=== PATIENT | male | born 1960 | race Caucasian/White ===

== ENCOUNTER 2017-01-11 13:04 | Emergency (ER) | payer SELFPAY ==
[~2017-01-11] VITALS: Ht 170.2 cm; Wt 69.1 kg
[2017-01-11 13:10] VITALS: TEMP 36.8; Ht 170.2 cm; Wt 69.1 kg
[2017-01-11] MEDS ORDERED: XYLOCAINE 1%/SOD BICARB 20 ML VIAL INFIL ONE (13:30)
[2017-01-11] MEDS ORDERED: DIPHTHERIA/TETANUS/PERTUSSIS 0.5 ML SYR/VIAL IM. ONE (13:30)
[2017-01-11] MEDS ORDERED: CEPHALEXIN MONOHYDRATE 250 MG CAP PO ONE (14:00)
--- NOTE | 2017-01-11 14:08 | DIAGNOSTIC IMAGING REPORT ---
RIGHT INDEX FINGER 3 VIEWS HISTORY: Right index finger injury. COMPARISON: None. FINDINGS: Comminuted and displaced fracture within the distal tuft of the right index finger. Soft tissue laceration and soft tissue swelling distally. No dislocation. No radiopaque foreign bodies. IMPRESSION: Comminuted and displaced fracture within the distal tuft of the right index finger. Electronically signed by: Lawson Rapp M.D. 01/11/2017 2:07 PM Dictated Date/Time: 01/11/2017 2:06 PM
[2017-01-11] MEDS ORDERED: CEPH500C PO (14:17)
[2017-01-11] MEDS ORDERED: OXYC1TAB3 PO (14:17)
--- NOTE | 2017-01-11 15:03 | EMERGENCY ROOM VISIT NOTE ---
History First contact with patient: 13:25 Chief Complaint: LACERATION/CUT (SUT/DERMABOND) Stated Complaint: POINTER FINGER, RIGHT HAND -LACERATION Nursing Triage Summary: triage note: pt reports " i was cutting a piece of aluminium at 1100 today and the aluminum cut my right index finger.' dressing to right second finger intact - wound not visulaized in triage bloody drainage noted on dressing. pt reports "it is almost cut off." History of Present Illness The patient is a 56 year old male who presents to the Emergency Room with complaints of a right index finger laceration. The patient reports that he was cutting aluminum with a saw around 11 AM this morning when the aluminum kicked back and cut his finger. The patient reports significant bleeding. He rates his discomfort a 5 out of 10. The patient is not certain if his tetanus shot is up-to-date within 10 years. The patient is ambidextrous. Review of Systems 10 system review was performed and was negative except for pertinent positives and negatives as indicated in history of present illness Past Medical/Surgical History Medical Problems: (1) Corneal Foreign Body (2) Tobacco Use Disorder Surgical Problems: (1) No history of previous surgery Family History FH: heart disease Social History Smoking Status: Current Some Day Smoker Alcohol Use: occasionally Marital Status: Occupation Status: employed Current/Historical Medications Scheduled Cephalexin Monohydrate (Keflex), 500 MG PO TID Scheduled PRN Oxycodone Ir (Roxicodone Ir), 1-2 TAB PO Q4H PRN for Pain Allergies Coded Allergies: No Known Allergies (Unverified , 01/11/17) Physical Exam Vital Signs Date Time Temp Pulse Resp B/P (MAP) Pulse Ox O2 Delivery O2 Flow Rate FiO2 01/11/17 13:10 36.8 90 18 147/81 95 Room Air Physical Exam CONSTITUTIONAL: Healthy and well nourished. Alert and oriented X 3 with positive affect. Patient appears in mild discomfort from pain. HEENT: Normocephalic, atraumatic. Pupils equal, round and reactive. NECK: Full active range of motion without discomfort. MUSCULOSKELETAL: Examination of the right index finger pad shows a macerated laceration without active bleeding estimated total laceration length of needed repair is 3 cm. Nail plate is intact. The patient has no tenderness to palpation of the DIP joint. Capillary refill is less than 2 seconds. INTEGUMENTARY: No rash or other significant dermatologic conditions noted. NEUROLOGIC: No focal neurologic deficits noted. Right index fingertip is sensory intact. Medical Decision & Procedures ER Provider Diagnostic Interpretation: My interpretation of a right index finger x-rays shows a comminuted distal phalanx fracture. Radiologist report is as follows: RIGHT INDEX FINGER 3 VIEWS HISTORY: Right index finger injury. COMPARISON: None. FINDINGS: Comminuted and displaced fracture within the distal tuft of the right index finger. Soft tissue laceration and soft tissue swelling distally. No dislocation. No radiopaque foreign bodies. IMPRESSION: Comminuted and displaced fracture within the distal tuft of the right index finger. Medications Administered Medications (Trade) Dose Ordered Sig/Rashid Route Start Time Stop Time Status Last Admin Dose Admin Diphtheria/ Pertussis/Tetanus Vacc (Adacel Inj) 0.5 ml ONCE ONCE IM. 01/11/17 13:30 01/11/17 13:31 DC 01/11/17 13:53 0.5 ML Cephalexin Monohydrate (Keflex Cap) 500 mg NOW ONCE PO 01/11/17 14:00 01/11/17 14:01 DC 01/11/17 14:34 500 MG Procedure Wound evaluation and laceration repair was performed under digital block anesthesia after receiving verbal consent from the patient. Using buffered 1% lidocaine without epinephrine, good digital block anesthesia was administered. The wound was then copiously pressure irrigated with 250 mL of normal saline. Exploration of the wound does not show any underlying foreign debris. The digital pad was then grossly approximated using 5-0 nylon simple interrupted sutures. Further evaluation showed that the radial base of the nail was also subluxed, and the ulnar base of the nail and surrounding tissue was macerated. I then made the decision to anchor the nail proximally with two 4-0 nylon simple interrupted sutures. A bacitracin dressing was applied. The patient tolerated the procedure well. ED Course Patient history and physical exam were performed. Nurse's notes were reviewed. The patient initially refused any analgesics. Adacel was administered IM. X- rays of the right index finger is a comminuted distal phalanx fracture. The patient was administered Keflex 500 mg orally. Laceration irrigation, exploration and repair was performed under digital block anesthesia. The patient was provided a prescription for Keflex. He was instructed to alternate ibuprofen and Tylenol as needed for pain. He was provided a prescription for OxyIR 5 mg as well. No drinking or driving while taking OxyIR. The patient was instructed to follow-up with Dr. Ladd, hand surgeon on-call, for further management. He was instructed to call in the morning for an appointment. The patient was instructed to limit activities until he is evaluated by a hand surgeon. The patient was happy with plan of care, voiced understanding of all discharge instructions, and denied any pain at the conclusion of my exam. Medical Decision Impression Primary Impression: Open fracture of distal phalanx of right index finger Additional Impression: Laceration of right index finger with damage to nail Departure Information Prescriptions Oxycodone Ir (Roxicodone Ir) 5 Mg Tab 1-2 TAB PO Q4H Y for Pain, #10 TAB For Initial Treatment Prov: Lucius Bueno PA 01/11/17 Cephalexin Monohydrate (Keflex) 500 Mg Cap 500 MG PO TID for 7 Days, #21 CAP Prov: Lucius Bueno PA 01/11/17 Referrals No Doctor, Assigned (PCP) Patient Instructions My [facility] [address] Problem Qualifiers Primary Impression: Open fracture of distal phalanx of right index finger Encounter type: initial encounter Fracture alignment: displaced Qualified Codes: S62.630B - Displaced fracture of distal phalanx of right index finger, initial encounter for open fracture Additional Impression: Laceration of right index finger with damage to nail Encounter type: initial encounter Foreign body presence: without foreign body Qualified Codes: S61.310A - Laceration without foreign body of right index finger with damage to nail, initial encounter
[2017-01-11 15:05] VITALS: BP 155/96; PULSE 75; O2SAT 99
== END 2017-01-11 15:07 | disposition home or self-care (01) ==
LOC: C.EDB 13:06
DX: S62.630B Displaced fracture of distal phalanx of right index finger, initial encounter for open fracture (principal); S61.310A Laceration without foreign body of right index finger with damage to nail, initial encounter; W27.0XXA Contact with workbench tool, initial encounter; Z23 Encounter for immunization; F17.200 Nicotine dependence, unspecified, uncomplicated